=== PATIENT | female | born 1995 | race Caucasian/White ===

== ENCOUNTER 2024-10-02 16:27 | Emergency (ER) | payer OTHER ==
[~2024-10-02] VITALS: Ht 160 cm; Wt 79.5 kg
[2024-10-02 16:39] VITALS: O2SAT 98
[2024-10-02 16:40] VITALS: BP 123/89; PULSE 71; RESP 18; TEMP 36.9; O2SAT 99
[2024-10-02] MEDS ORDERED: LIDO1ADH16 TP (17:51)
[2024-10-02] MEDS ORDERED: CYCL10TA21 MT (17:51)
== END 2024-10-02 18:11 | disposition home or self-care (01) ==
LOC: ER 16:27
DX: M62.838 Other muscle spasm (principal); Z90.89 Acquired absence of other organs; V43.52XA Car driver injured in collision with other type car in traffic accident, initial encounter; Y93.89 Activity, other specified; Y92.89 Other specified places as the place of occurrence of the external cause; Y99.8 Other external cause status
CPT/HCPCS: 99283

== ENCOUNTER 2024-10-03 14:45 | Emergency (ER) | payer OTHER ==
[~2024-10-03] VITALS: Ht 160 cm; Wt 79.0 kg
[~2024-10-03 14:45] MED LIST: CYCL10TA21 MT; LIDO1ADH16 TP
[2024-10-03 14:50] VITALS: O2SAT 98
[2024-10-03 16:11] VITALS: BP 128/68; PULSE 70; RESP 16; TEMP 36.8; O2SAT 98
== END 2024-10-03 16:26 | disposition home or self-care (01) ==
LOC: ER 14:45
DX: Z00.00 Encounter for general adult medical examination without abnormal findings (principal); Z90.89 Acquired absence of other organs
CPT/HCPCS: 99281